=== PATIENT | female | born 1950 | race Two or more races ===

== ENCOUNTER 2021-04-10 02:22 | Inpatient (IN) | payer BC, OTHER ==
[2021-04-10] VITALS (23 sets, daily range): BP systolic 101–134; BP diastolic 60–75
[~2021-04-10] VITALS: Ht 167.6 cm; Wt 66.2 kg
[2021-04-10] MEDS ORDERED: DILTIAZEM HCL 25 MG IV ONE ×4 (02:51→04:40)
[2021-04-10] MEDS ORDERED: VANCOMYCIN 1 GM VIAL ONE (02:57)
[2021-04-10] MEDS ORDERED: IV NS 0.9% 1,000 ML BAG IV ONE (03:00)
[2021-04-10] MEDS ORDERED: DILTIAZEM HCL 50 MG IV IV ONE ×2 (03:00→04:00)
[2021-04-10] MEDS ORDERED: CEFEPIME 1 GM in IV D5W 50 ML IV ONE (03:00)
[2021-04-10] MEDS: VANCOMYCIN 1 GM in IV D5W 250 ML IV ONE ×2 (03:02→03:55)
[2021-04-10] MEDS ORDERED: FENTANYL PF 100MCG/2ML AMPUL ONE (03:08)
[2021-04-10] MEDS ORDERED: MIDAZOLAM 50 MG/10 ML VIAL ONE (03:11)
[2021-04-10] MEDS ORDERED: MIDAZOLAM HCL 5 MG/5ML VIAL IV ONE (03:30)
[2021-04-10] MEDS ORDERED: IV NS 0.9% 1,000 ML BAG IV STA (03:48)
[2021-04-10 03:54] LABS: BASOPHILS % (AUTO) 0.1 % (0.0-2.0); EOSINOPHILS % (AUTO) 0.5 % (0.0-6.0); LYMPHOCYTES # (AUTO) 0.6 K/uL (0.8-4.8); LYMPHOCYTES % (AUTO) 6.5 % (20.0-44.0); MEAN CORPUSCULAR HGB CONC 33 g/dl (31.0-36.0); MEAN CORPUSCULAR VOLUME 91 fL (80-96); MONOCYTES # (AUTO) 0.5 K/uL (0.1-1.30); MONOCYTES % (AUTO) 5.2 % (2.0-12.0); NEUTROPHILS # (AUTO) 8.2 K/uL (1.8-8.9); NEUTROPHILS % (AUTO) 87.7 % (43.0-81.0); PLATELET COUNT (AUTO) 243 K/uL (150-450); RED BLOOD CELL COUNT(AUTO) 2.21 MIL/uL (4.5-6.0); WHITE BLOOD COUNT (AUTO) 9.4 K/uL (4.3-11.0)
[2021-04-10] MEDS ORDERED: DILTIAZEM HCL IV 125 MG in IV NS 0.9% 100 ML IV PRN ×2 (04:00→05:00)
[2021-04-10] MEDS ORDERED: CEFEPIME 1 GM VIAL ONE (04:03)
[2021-04-10 04:18] LABS: BILIRUBIN,URINE SMALL (NEGATIVE); COLOR,URINE AMBER (YELLOW); LEUKOCYTE ESTERASE ,URINE TRACE (NEGATIVE); NITRITE, URINE NEGATIVE (NEGATIVE); PROTEIN,URINE 100 mg/dl (NEGATIVE); UGLUCOSE NEGATIVE (NEGATIVE); UROBILINOGEN,URINE 0.2 EU/dL (0.2)
[2021-04-10 04:23] LABS: BACTERIA,URINE Few /HPF (None Seen); RBC,URINE 81-100 /HPF (0-2)
[2021-04-10 04:24] LABS: SQUAMOUS EPITHELIAL CELL,UR Few /HPF (None Seen); YEAST,URINE Few /HPF (None Seen)
[2021-04-10 04:29] LABS: ALANINE AMINOTRANSFERASE 26 U/L (12-78); ALBUMIN 2.1 g/dL (3.4-5.0); ALKALINE PHOSPHATASE 82 U/L (46-116); ASPARTATE AMINOTRANSFERASE 13 U/L (15-37); BILIRUBIN,DIRECT 0.2 mg/dL (0.0-0.2); BILIRUBIN,TOTAL 0.7 mg/dL (0.2-1.0); CALCIUM, SERUM 8.3 mg/dL (8.5-10.1); CARBON DIOXIDE 25 mmol/L (21-32); CHLORIDE 102 mmol/L (98-107); CREATININE 0.9 mg/dL (0.6-1.3); GLUCOSE 121 mg/dL (74-106); HEMATOCRIT 20 % (39-51); HEMOGLOBIN 6.5 g/dL (13.5-17.5); POTASSIUM 3.7 mmol/L (3.5-5.1); SODIUM SERUM 137 mmol/L (136-145); UREA NITROGEN, BLOOD 33 mg/dL (7-18)
[2021-04-10] MEDS ORDERED: DILTIAZEM HCL CD 120 MG ONE (04:34)
[2021-04-10] MEDS ORDERED: NOREPINEPHRINE 4 MG/4 ML AMPUL IV ONE (04:56)
[2021-04-10] MEDS ORDERED: ACETAMINOPHEN 325 MG TABLET PO PRN (05:00)
[2021-04-10] MEDS ORDERED: MAGNESIUM HYDROXIDE 30 ML UDC PO PRN (05:00)
[2021-04-10] MEDS ORDERED: NOREPINEPHRINE 8 MG in IV NS 0.9% 242 ML IV PRN ×2 (05:00→17:00)
[2021-04-10] MEDS ORDERED: ONDANSETRON HCL/PF 4 MG/2 ML VIAL IVP PRN (05:00)
[2021-04-10 05:44] LABS: LYMPHOCYTES % (MANUAL) 6 % (16-48); MONOCYTES % (MANUAL) 7 % (0-11.0); NEUTROPHILS % (MANUAL) 87 (42-76)
[2021-04-10] MEDS ORDERED: PANTOPRAZOLE 40 MG VIAL IV SCH (09:00)
[2021-04-10] MEDS: CEFEPIME 2 GM in IV D5W 100 ML IV SCH ×2 (09:19→21:14)
[2021-04-10] MEDS ORDERED: PANTOPRAZOLE 40 MG VIAL ONE (09:20)
[2021-04-10] MEDS ORDERED: SENN-175 GT (10:31)
[2021-04-10] MEDS ORDERED: CRAN400C GT (10:31)
[2021-04-10] MEDS ORDERED: ASCO500C17 GT (10:31)
[2021-04-10] MEDS ORDERED: CHOL200013 GT (10:31)
[2021-04-10] MEDS ORDERED: ZINC220T4 PO (10:31)
[2021-04-10] MEDS ORDERED: NUTR1PAC14 GT (10:31)
[2021-04-10] MEDS ORDERED: HEPA100D33 SUBCUT (10:31)
[2021-04-10] MEDS ORDERED: ACET325T53 GT (10:31)
[2021-04-10] MEDS ORDERED: METO25TA6 GT (10:31)
[2021-04-10] MEDS ORDERED: CRAN3875 GT (10:31)
[2021-04-10] MEDS ORDERED: FAMO20TA8 GT (10:31)
[2021-04-10] MEDS ORDERED: MULT-447 PO (10:31)
[2021-04-10] MEDS ORDERED: IPRA0.2S9 IH (10:31)
[2021-04-10] MEDS ORDERED: LEVO25TA7 GT (10:31)
[2021-04-10] MEDS ORDERED: INSU100V42 SUBCUT (10:31)
[2021-04-10] MEDS ORDERED: AMIN30LI2 GT (10:31)
[2021-04-10] MEDS ORDERED: ALBU2.5V13 IH (10:31)
[2021-04-10] MEDS ORDERED: DOCU-141 GT (10:31)
[2021-04-10] MEDS ORDERED: CHLO473M3 MM (10:31)
[2021-04-10] MEDS ORDERED: LACT-96 GT (10:31)
[2021-04-10] MEDS ORDERED: AMIODARONE 150 MG/3 ML VIAL IV ONE (10:53)
[2021-04-10] MEDS ORDERED: PHENYLEPHRINE HCL IN 0.9% NACL 50 MG in PREMIX 1 EA IV PRN ×2 (11:00)
[2021-04-10] MEDS ORDERED: AMIODARONE 150 MG in IV D5W 100 ML IV ONE (11:00)
[2021-04-10] MEDS: IV NS 0.9% 1,000 ML IV PRN ×2 (13:19→19:36)
[2021-04-10] MEDS: HYDROCORTISONE SOD SUCCINATE 100 MG/2 ML VIAL IV SCH ×2 (13:23→21:14)
[2021-04-10] MEDS: DIGOXIN INJ 0.5 MG/2 ML AMPUL IV SCH ×3 (13:32→23:37)
[2021-04-10 14:04] LABS: ABG BASE EXCESS 0.6 mmol/L; ABG OXYGEN SATURATION 95.5 % (92.0-98.5); ABG PH 7.533 (7.350-7.450); AaDO2 149.2 mmHg; COHb 0.2 % (0.5-1.5); MetHb 0.2 % (0.0-1.5); O2Hb 95.1 % (94.0-97.0); PEEP,BG 0 cm H2O; SITE, ABG Other; VT, ABG 500 mL
[2021-04-10] MEDS: VANCOMYCIN 0.75 GM in IV D5W 250 ML IV SCH (14:42)
[2021-04-10 15:06] LABS: IRON, SERUM 9 ug/dl (50-175); TOTAL IRON BINDING CAPACITY 176 ug/dl (250-450)
[2021-04-10 16:45] LABS: FERRITIN 543 ng/mL (8-388)
[2021-04-10] MEDS: ACETAMINOPHEN 650 MG/20.3 ML UDC NG PRN (16:56)
[2021-04-10] MEDS: LORAZEPAM INJ 2 MG/ML VIAL IV PRN (16:56)
[2021-04-10] MEDS ORDERED: DEXTROSE 50%-WATER 50 ML DISP.SYRIN IV PRN (17:30)
[2021-04-10] MEDS ORDERED: VANCOMYCIN HCL 0.75 GM in IV D5W 250 ML IV SCH (18:00)
[2021-04-10] MEDS: BLOOD SUGAR DIAGNOSTIC 1 EACH STRIP IN SCH ×2 (18:35→23:52)
[2021-04-10 20:11] LABS: HEMOGLOBIN 6.3 g/dL (11.5-14.8)
[2021-04-10] MEDS: Z GUARD REMEDY 4 OZ OINT TP SCH (21:32)
[2021-04-10] MEDS: INSULIN REGULAR, HUMAN 100 UNIT/ML 3 ML VIAL SQ PRN (23:52)
[2021-04-11] VITALS (34 sets, daily range): BP systolic 102–148; BP diastolic 41–94
[2021-04-11] MEDS: IV NS 0.9% 1,000 ML IV PRN ×3 (00:03→13:03)
[2021-04-11] MEDS: VANCOMYCIN 0.75 GM in IV D5W 250 ML IV SCH ×2 (02:24→15:00)
[2021-04-11] MEDS: LORAZEPAM INJ 2 MG/ML VIAL IV PRN ×3 (02:57→23:38)
[2021-04-11] MEDS: HYDROCORTISONE SOD SUCCINATE 100 MG/2 ML VIAL IV SCH ×3 (05:04→21:39)
[2021-04-11 06:01] LABS: BASOPHILS % (AUTO) 0.3 % (0.0-2.0); EOSINOPHILS % (AUTO) 0.1 % (0.0-6.0); LYMPHOCYTES # (AUTO) 0.3 K/uL (0.8-4.8); MEAN CORPUSCULAR HGB CONC 33 g/dl (31.0-36.0); MEAN CORPUSCULAR VOLUME 91 fL (82-100); MONOCYTES # (AUTO) 0.2 K/uL (0.1-1.30); MONOCYTES % (AUTO) 2.7 % (2.0-12.0); NEUTROPHILS # (AUTO) 6.5 K/uL (1.8-8.9); NEUTROPHILS % (AUTO) 92.9 % (43.0-81.0); PLATELET COUNT (AUTO) 244 K/uL (150-450); RED BLOOD CELL COUNT(AUTO) 2.05 MIL/uL (4.0-5.2)
[2021-04-11 06:11] LABS: CHOLESTEROL 106 mg/dL (<200); HDL CHOLESTEROL 26 mg/dL (40-60); LDL 61 mg/dL (0-99); TRIGLYCERIDES 74 mg/dL (30-150)
[2021-04-11] MEDS: BLOOD SUGAR DIAGNOSTIC 1 EACH STRIP IN SCH ×3 (06:22→17:47)
[2021-04-11 06:24] LABS: CALCIUM, SERUM 7.9 mg/dL (8.5-10.1); CARBON DIOXIDE 25 mmol/L (21-32); CHLORIDE 104 mmol/L (98-107); CREATININE 0.6 mg/dL (0.6-1.3); GLUCOSE 152 mg/dL (74-106); MAGNESIUM 2.2 mg/dL (1.8-2.4); PHOSPHORUS 2.8 mg/dL (2.5-4.9); POTASSIUM 3.7 mmol/L (3.5-5.1); SODIUM SERUM 137 mmol/L (136-145); UREA NITROGEN, BLOOD 22 mg/dL (7-18)
[2021-04-11 06:30] LABS: HEMATOCRIT 19 % (33-45); HEMOGLOBIN 6.1 g/dL (11.5-14.8)
[2021-04-11 06:31] LABS: HEMOGLOBIN 6.1 g/dL (11.5-14.8)
[2021-04-11] MEDS: INSULIN REGULAR, HUMAN 100 UNIT/ML 3 ML VIAL SQ PRN ×2 (06:42→13:19)
[2021-04-11 07:55] LABS: ABG BASE EXCESS -0.8 mmol/L; ABG OXYGEN SATURATION 97.4 % (92.0-98.5); ABG PCO2 28.5 mmHg (35.0-45.0); ABG PH 7.506 (7.350-7.450); ABG PO2 94.3 mmHg (75.0-100.0); AaDO2 122.1 mmHg; COHb 0.3 % (0.5-1.5); MetHb 0.2 % (0.0-1.5); O2Hb 96.9 % (94.0-97.0); SITE, ABG Right Radial
[2021-04-11] MEDS ORDERED: IV NS 0.9% 1,000 ML IV ONE (08:00)
[2021-04-11] MEDS ORDERED: FERROUS SULFATE (325 MG) 325 MG/TAB TABLET PO SCH (09:00)
[2021-04-11] MEDS: CEFEPIME 2 GM in IV D5W 100 ML IV SCH ×2 (10:48→21:52)
[2021-04-11] MEDS: PANTOPRAZOLE 40 MG VIAL IV SCH ×2 (10:48→17:46)
[2021-04-11] MEDS: Z GUARD REMEDY 4 OZ OINT TP SCH ×2 (10:49→21:58)
[2021-04-11 11:33] LABS: HEMOGLOBIN 6.8 g/dL (11.5-14.8)
[2021-04-11 13:26] LABS: BAND % (MANUAL) 1 % (0.0-5.0); LYMPHOCYTES % (MANUAL) 4 % (16-48); MONOCYTES % (MANUAL) 3 % (0-11.0); NEUTROPHILS % (MANUAL) 92 (42-76)
[2021-04-11] MEDS: SOD FERRIC GLUC 125 MG in IV NS 0.9% 100 ML IV SCH (14:53)
[2021-04-11] MEDS: VANCOMYCIN 1 GM in IV D5W 250ml IV SCH (17:47)
[2021-04-11 21:34] LABS: HEMOGLOBIN 6.9 g/dL (11.5-14.8)
[2021-04-12] VITALS (11 sets, daily range): BP systolic 115–159; BP diastolic 59–100
[2021-04-12] MEDS: BLOOD SUGAR DIAGNOSTIC 1 EACH STRIP IN SCH ×4 (00:44→17:12)
[2021-04-12] MEDS: IV NS 0.9% 1,000 ML IV PRN ×2 (03:11→18:21)
[2021-04-12 03:23] LABS: HEMOGLOBIN 7.4 g/dL (11.5-14.8)
[2021-04-12] MEDS: LORAZEPAM INJ 2 MG/ML VIAL IV PRN (04:51)
[2021-04-12] MEDS: HYDROCORTISONE SOD SUCCINATE 100 MG/2 ML VIAL IV SCH ×3 (05:36→21:05)
[2021-04-12] MEDS: VANCOMYCIN 1 GM in IV D5W 250ml IV SCH ×2 (05:42→17:18)
[2021-04-12] MEDS ORDERED: DILTIAZEM HCL 25 MG IV ONE (06:00)
[2021-04-12] MEDS ORDERED: DILTIAZEM HCL 50 MG IV IVP ONE (06:00)
[2021-04-12] MEDS ORDERED: DILTIAZEM HCL 25 MG IV IVP ONE (06:30)
[2021-04-12] MEDS ORDERED: DILTIAZEM HCL 25 MG IV INJ ONE (06:30)
[2021-04-12 06:43] LABS: CALCIUM, SERUM 8.5 mg/dL (8.5-10.1); CREATININE 0.6 mg/dL (0.6-1.3); POTASSIUM 3.3 mmol/L (3.5-5.1)
[2021-04-12] MEDS: PANTOPRAZOLE 40 MG VIAL IV SCH (08:48)
[2021-04-12] MEDS: Z GUARD REMEDY 4 OZ OINT TP SCH ×2 (08:49→21:05)
[2021-04-12] MEDS: CEFEPIME 2 GM in IV D5W 100 ML IV SCH (09:12)
[2021-04-12] MEDS: AMIODARONE HCL 200 MG TABLET PO SCH ×3 (09:30→16:47)
[2021-04-12 11:11] LABS: HEMOGLOBIN 8.6 g/dL (11.5-14.8)
[2021-04-12 11:22] LABS: ABG BASE EXCESS -3.9 mmol/L; ABG OXYGEN SATURATION 89.5 % (92.0-98.5); ABG PCO2 30.6 mmHg (35.0-45.0); ABG PH 7.427 (7.350-7.450); ABG PO2 56.8 mmHg (75.0-100.0); AaDO2 157.2 mmHg; COHb 0.3 % (0.5-1.5); MetHb 0.4 % (0.0-1.5); O2Hb 88.9 % (94.0-97.0); SITE, ABG Left Radial; VENT MODE, BG AC 16 400 35% +0
[2021-04-12] MEDS ORDERED: POTASSIUM CHLORIDE 20 MEQ TAB.PRT.SR PO SCH (13:30)
[2021-04-12] MEDS: SOD FERRIC GLUC 125 MG in IV NS 0.9% 100 ML IV SCH (15:21)
[2021-04-12] MEDS: PANTOPRAZOLE 40 MG TABLET.DR PO SCH (16:46)
[2021-04-12 18:29] LABS: HEMOGLOBIN 8.2 g/dL (11.5-14.8)
[2021-04-12] MEDS ORDERED: JEVITY 1.2 CAL 1,000 ML BOTTLE GT PRN (19:00)
[2021-04-12] MEDS: JEVITY 1.2 CAL 1,000 ML BOTTLE GT SCH (23:34)
[2021-04-13] VITALS: BP 156/85
[2021-04-13] MEDS: BLOOD SUGAR DIAGNOSTIC 1 EACH STRIP IN SCH ×4 (00:01→17:26)
[2021-04-13 03:00] LABS: HEMOGLOBIN 8.9 g/dL (11.5-14.8)
[2021-04-13 04:00] VITALS: BP 135/89
[2021-04-13] MEDS: HYDROCORTISONE SOD SUCCINATE 100 MG/2 ML VIAL IV SCH ×4 (05:12→16:04)
[2021-04-13] MEDS: VANCOMYCIN 1 GM in IV D5W 250ml IV SCH ×2 (05:13→17:21)
[2021-04-13] MEDS: INSULIN REGULAR, HUMAN 100 UNIT/ML 3 ML VIAL SQ PRN ×2 (06:08→11:33)
[2021-04-13 07:55] LABS: CALCIUM, SERUM 8.6 mg/dL (8.5-10.1); CREATININE 0.7 mg/dL (0.6-1.3)
[2021-04-13 08:30] LABS: POTASSIUM 2.7 mmol/L (3.5-5.1)
[2021-04-13 08:44] LABS: BASOPHILS % (AUTO) 0.2 % (0.0-2.0); EOSINOPHILS % (AUTO) 0.1 % (0.0-6.0); HEMATOCRIT 25 % (33-45); HEMOGLOBIN 8.3 g/dL (11.5-14.8); LYMPHOCYTES # (AUTO) 0.7 K/uL (0.8-4.8); LYMPHOCYTES % (AUTO) 11.6 % (20.0-44.0); MEAN CORPUSCULAR HGB CONC 33 g/dl (31.0-36.0); MEAN CORPUSCULAR VOLUME 89 fL (82-100); MONOCYTES # (AUTO) 0.5 K/uL (0.1-1.30); MONOCYTES % (AUTO) 7.8 % (2.0-12.0); NEUTROPHILS # (AUTO) 4.8 K/uL (1.8-8.9); NEUTROPHILS % (AUTO) 80.3 % (43.0-81.0); PLATELET COUNT (AUTO) 350 K/uL (150-450); RED BLOOD CELL COUNT(AUTO) 2.83 MIL/uL (4.0-5.2)
[2021-04-13 08:53] VITALS: BP 134/79
[2021-04-13] MEDS: AMIODARONE HCL 200 MG TABLET PO SCH ×3 (09:27→16:06)
[2021-04-13] MEDS: PANTOPRAZOLE 40 MG TABLET.DR PO SCH ×2 (09:27→16:04)
[2021-04-13] MEDS: Z GUARD REMEDY 4 OZ OINT TP SCH ×2 (09:28→21:15)
[2021-04-13 09:42] LABS: ALBUMIN 2.2 g/dL (3.4-5.0); BILIRUBIN,TOTAL 0.4 mg/dL (0.2-1.0); CALCIUM, SERUM 8.2 mg/dL (8.5-10.1); CREATININE 0.7 mg/dL (0.6-1.3)
[2021-04-13 10:01] LABS: POTASSIUM 2.6 mmol/L (3.5-5.1)
[2021-04-13] MEDS ORDERED: POTASSIUM CHLORIDE 20 MEQ TAB.PRT.SR PO SCH (11:00)
[2021-04-13 11:06] LABS: HEMOGLOBIN 7.6 g/dL (11.5-14.8)
[2021-04-13 12:07] VITALS: BP 158/95
[2021-04-13] MEDS: SOD FERRIC GLUC 125 MG in IV NS 0.9% 100 ML IV SCH (13:27)
[2021-04-13] MEDS: IPRATROPIUM NEB FS 0.5 MG/2.5 ML AMPUL.NEB IH SCH ×2 (13:50→20:21)
[2021-04-13] MEDS: FAMOTIDINE (20 MG) 20 MG TABLET GT SCH (16:04)
[2021-04-13] MEDS: DOCUSATE SODIUM LIQ 100 MG/10 ML UDC GT SCH (16:04)
[2021-04-13] MEDS: METOPROLOL TARTRATE 25 MG TABLET GT SCH (16:06)
[2021-04-13] MEDS: JEVITY 1.2 CAL 1,000 ML BOTTLE GT SCH (16:24)
[2021-04-13 16:25] VITALS: BP 148/79
[2021-04-13] MEDS ORDERED: POTASSIUM CHLORIDE 20 MEQ POWDER PACKET PO SCH (17:00)
[2021-04-13 19:24] LABS: BAND % (MANUAL) 6 % (0.0-5.0); LYMPHOCYTES % (MANUAL) 12 % (16-48); MONOCYTES % (MANUAL) 6 % (0-11.0); NEUTROPHILS % (MANUAL) 76 (42-76)
[2021-04-13 20:00] VITALS: BP 139/85
[2021-04-13] MEDS: CHLORHEXIDINE GLUCONATE 15 ML UDC MM SCH (21:15)
[2021-04-13] MEDS: SENNOSIDES 8.6 MG TABLET GT SCH (23:23)
[2021-04-14] VITALS: BP 130/98
[2021-04-14] MEDS: IV NS 0.9% 1,000 ML IV PRN ×2 (00:32→00:36)
[2021-04-14] MEDS: INSULIN REGULAR, HUMAN 100 UNIT/ML 3 ML VIAL SQ PRN ×4 (00:54→17:21)
[2021-04-14] MEDS: BLOOD SUGAR DIAGNOSTIC 1 EACH STRIP IN SCH ×4 (00:57→17:17)
[2021-04-14] MEDS: IPRATROPIUM NEB FS 0.5 MG/2.5 ML AMPUL.NEB IH SCH ×4 (01:15→20:19)
[2021-04-14 04:00] VITALS: BP 136/74
[2021-04-14] MEDS: VANCOMYCIN 1 GM in IV D5W 250ml IV SCH ×2 (05:24→17:34)
[2021-04-14 07:19] LABS: BASOPHILS % (AUTO) 0.2 % (0.0-2.0); EOSINOPHILS % (AUTO) 1.7 % (0.0-6.0); HEMATOCRIT 27 % (33-45); HEMOGLOBIN 8.7 g/dL (11.5-14.8); LYMPHOCYTES # (AUTO) 1.2 K/uL (0.8-4.8); MEAN CORPUSCULAR HGB CONC 33 g/dl (31.0-36.0); MEAN CORPUSCULAR VOLUME 90 fL (82-100); MONOCYTES # (AUTO) 0.7 K/uL (0.1-1.30); MONOCYTES % (AUTO) 10.2 % (2.0-12.0); NEUTROPHILS # (AUTO) 5.2 K/uL (1.8-8.9); NEUTROPHILS % (AUTO) 70.9 % (43.0-81.0); PLATELET COUNT (AUTO) 404 K/uL (150-450); RED BLOOD CELL COUNT(AUTO) 2.97 MIL/uL (4.0-5.2); WHITE BLOOD COUNT (AUTO) 7.3 K/uL (4.3-11.0)
[2021-04-14 07:33] LABS: ALBUMIN 2.3 g/dL (3.4-5.0); BILIRUBIN,TOTAL 0.5 mg/dL (0.2-1.0); CREATININE 0.6 mg/dL (0.6-1.3); TOTAL PROTEIN, SERUM 6.2 g/dL (6.4-8.2)
[2021-04-14 07:41] LABS: POTASSIUM 2.1 mmol/L (3.5-5.1)
[2021-04-14] MEDS ORDERED: POTASSIUM CHLORIDE 20 MEQ POWDER PACKET NG SCH (09:30)
[2021-04-14] MEDS: CHOLECALCIFEROL 1,000 UNIT TABLET (VIT D3) GT SCH (09:56)
[2021-04-14] MEDS: HYDROCORTISONE SOD SUCCINATE 100 MG/2 ML VIAL IV SCH ×2 (09:58→13:30)
[2021-04-14] MEDS: ASCORBIC ACID 500 MG TABLET GT SCH (09:58)
[2021-04-14] MEDS: FAMOTIDINE (20 MG) 20 MG TABLET GT SCH ×2 (09:58→17:17)
[2021-04-14] MEDS: CHLORHEXIDINE GLUCONATE 15 ML UDC MM SCH ×2 (09:58→21:14)
[2021-04-14] MEDS: DOCUSATE SODIUM LIQ 100 MG/10 ML UDC GT SCH ×2 (09:58→17:11)
[2021-04-14] MEDS: PANTOPRAZOLE 40 MG TABLET.DR PO SCH ×2 (09:58→17:16)
[2021-04-14] MEDS: Z GUARD REMEDY 4 OZ OINT TP SCH ×2 (10:00→21:14)
[2021-04-14] MEDS: LEVOTHYROXINE SODIUM 75 MCG TABLET GT SCH (10:01)
[2021-04-14] MEDS: METOPROLOL TARTRATE 25 MG TABLET GT SCH ×2 (10:19→17:17)
[2021-04-14] MEDS: AMIODARONE HCL 200 MG TABLET PO SCH ×3 (10:20→17:16)
[2021-04-14] MEDS: POTASSIUM CHLORIDE 20 MEQ POWDER PACKET NG SCH ×3 (10:56→17:11)
[2021-04-14] MEDS: SOD FERRIC GLUC 125 MG in IV NS 0.9% 100 ML IV SCH (15:12)
[2021-04-14] MEDS: JEVITY 1.2 CAL 1,000 ML BOTTLE GT SCH (15:13)
[2021-04-14] MEDS: SENNOSIDES 8.6 MG TABLET GT SCH (22:37)
[2021-04-15] VITALS: BP 125/63
[2021-04-15] MEDS: BLOOD SUGAR DIAGNOSTIC 1 EACH STRIP IN SCH ×4 (00:07→17:13)
[2021-04-15] MEDS: INSULIN REGULAR, HUMAN 100 UNIT/ML 3 ML VIAL SQ PRN ×4 (00:11→17:17)
[2021-04-15] MEDS: IPRATROPIUM NEB FS 0.5 MG/2.5 ML AMPUL.NEB IH SCH ×4 (01:49→19:12)
[2021-04-15 04:00] VITALS: BP 154/87
[2021-04-15] MEDS: VANCOMYCIN 1 GM in IV D5W 250ml IV SCH ×2 (05:00→17:23)
[2021-04-15 07:32] LABS: BASOPHILS % (AUTO) 0.1 % (0.0-2.0); EOSINOPHILS % (AUTO) 1.6 % (0.0-6.0); HEMATOCRIT 27 % (33-45); HEMOGLOBIN 8.7 g/dL (11.5-14.8); LYMPHOCYTES # (AUTO) 1.7 K/uL (0.8-4.8); LYMPHOCYTES % (AUTO) 16.3 % (20.0-44.0); MEAN CORPUSCULAR HGB CONC 32 g/dl (31.0-36.0); MEAN CORPUSCULAR VOLUME 90 fL (82-100); MONOCYTES # (AUTO) 0.7 K/uL (0.1-1.30); MONOCYTES % (AUTO) 6.4 % (2.0-12.0); NEUTROPHILS % (AUTO) 75.6 % (43.0-81.0); PLATELET COUNT (AUTO) 404 K/uL (150-450); RED BLOOD CELL COUNT(AUTO) 2.99 MIL/uL (4.0-5.2); WHITE BLOOD COUNT (AUTO) 10.5 K/uL (4.3-11.0)
[2021-04-15 08:31] VITALS: BP 134/75
[2021-04-15] MEDS: DOCUSATE SODIUM LIQ 100 MG/10 ML UDC GT SCH ×2 (08:47→17:21)
[2021-04-15] MEDS: POTASSIUM CHLORIDE 20 MEQ POWDER PACKET NG SCH ×3 (08:47→17:21)
[2021-04-15] MEDS: ASCORBIC ACID 500 MG TABLET GT SCH (08:47)
[2021-04-15] MEDS: CHLORHEXIDINE GLUCONATE 15 ML UDC MM SCH ×2 (08:47→21:17)
[2021-04-15] MEDS: CHOLECALCIFEROL 1,000 UNIT TABLET (VIT D3) GT SCH (08:47)
[2021-04-15] MEDS: AMIODARONE HCL 200 MG TABLET PO SCH ×3 (08:48→18:01)
[2021-04-15] MEDS: PANTOPRAZOLE 40 MG TABLET.DR PO SCH ×2 (08:49→17:21)
[2021-04-15] MEDS: LEVOTHYROXINE SODIUM 75 MCG TABLET GT SCH (08:50)
[2021-04-15] MEDS: HYDROCORTISONE SOD SUCCINATE 100 MG/2 ML VIAL IV SCH (08:50)
[2021-04-15] MEDS: METOPROLOL TARTRATE 25 MG TABLET GT SCH ×2 (08:50→17:00)
[2021-04-15] MEDS: FAMOTIDINE (20 MG) 20 MG TABLET GT SCH ×2 (08:50→17:21)
[2021-04-15] MEDS: Z GUARD REMEDY 4 OZ OINT TP SCH ×2 (08:51→21:18)
[2021-04-15 09:38] LABS: CALCIUM, SERUM 8.3 mg/dL (8.5-10.1); CREATININE 0.6 mg/dL (0.6-1.3)
[2021-04-15 09:43] LABS: ALBUMIN 2.4 g/dL (3.4-5.0); BILIRUBIN,TOTAL 0.6 mg/dL (0.2-1.0)
[2021-04-15 12:13] VITALS: BP 165/85
[2021-04-15] MEDS: SOD FERRIC GLUC 125 MG in IV NS 0.9% 100 ML IV SCH (15:49)
[2021-04-15] MEDS: JEVITY 1.2 CAL 1,000 ML BOTTLE GT SCH (15:50)
[2021-04-15 16:44] VITALS: BP 165/92
[2021-04-15 20:00] VITALS: BP 146/53
[2021-04-15] MEDS: SENNOSIDES 8.6 MG TABLET GT SCH (21:17)
[2021-04-16] VITALS: BP 141/56
[2021-04-16] MEDS: BLOOD SUGAR DIAGNOSTIC 1 EACH STRIP IN SCH ×5 (00:22→23:56)
[2021-04-16] MEDS: INSULIN REGULAR, HUMAN 100 UNIT/ML 3 ML VIAL SQ PRN ×3 (00:22→18:41)
[2021-04-16] MEDS: IPRATROPIUM NEB FS 0.5 MG/2.5 ML AMPUL.NEB IH SCH ×4 (00:56→20:04)
[2021-04-16 04:00] VITALS: BP 144/64
[2021-04-16] MEDS: VANCOMYCIN 1 GM in IV D5W 250ml IV SCH ×2 (04:17→18:02)
[2021-04-16 07:34] LABS: BASOPHILS % (AUTO) 0.2 % (0.0-2.0); EOSINOPHILS % (AUTO) 2.5 % (0.0-6.0); HEMATOCRIT 30 % (33-45); HEMOGLOBIN 9.6 g/dL (11.5-14.8); LYMPHOCYTES # (AUTO) 1.3 K/uL (0.8-4.8); LYMPHOCYTES % (AUTO) 10.7 % (20.0-44.0); MEAN CORPUSCULAR HGB CONC 32 g/dl (31.0-36.0); MEAN CORPUSCULAR VOLUME 89 fL (82-100); MONOCYTES # (AUTO) 0.6 K/uL (0.1-1.30); MONOCYTES % (AUTO) 5.2 % (2.0-12.0); NEUTROPHILS # (AUTO) 9.9 K/uL (1.8-8.9); NEUTROPHILS % (AUTO) 81.4 % (43.0-81.0); PLATELET COUNT (AUTO) 407 K/uL (150-450); RED BLOOD CELL COUNT(AUTO) 3.34 MIL/uL (4.0-5.2); WHITE BLOOD COUNT (AUTO) 12.2 K/uL (4.3-11.0)
[2021-04-16 07:38] LABS: ALBUMIN 2.6 g/dL (3.4-5.0); BILIRUBIN,TOTAL 0.8 mg/dL (0.2-1.0); CALCIUM, SERUM 8.3 mg/dL (8.5-10.1); CREATININE 0.7 mg/dL (0.6-1.3); POTASSIUM 3.6 mmol/L (3.5-5.1); TOTAL PROTEIN, SERUM 6.5 g/dL (6.4-8.2)
[2021-04-16] MEDS: DOCUSATE SODIUM LIQ 100 MG/10 ML UDC GT SCH ×2 (08:40→17:57)
[2021-04-16] MEDS: CHLORHEXIDINE GLUCONATE 15 ML UDC MM SCH ×2 (08:40→22:05)
[2021-04-16] MEDS: FAMOTIDINE (20 MG) 20 MG TABLET GT SCH ×2 (08:40→17:58)
[2021-04-16] MEDS: LEVOTHYROXINE SODIUM 75 MCG TABLET GT SCH (08:40)
[2021-04-16] MEDS: METOPROLOL TARTRATE 25 MG TABLET GT SCH ×2 (08:40→17:59)
[2021-04-16] MEDS: ASCORBIC ACID 500 MG TABLET GT SCH (08:41)
[2021-04-16] MEDS: HYDROCORTISONE SOD SUCCINATE 100 MG/2 ML VIAL IV SCH (08:41)
[2021-04-16] MEDS: CHOLECALCIFEROL 1,000 UNIT TABLET (VIT D3) GT SCH (08:42)
[2021-04-16] MEDS: POTASSIUM CHLORIDE 20 MEQ POWDER PACKET NG SCH ×3 (08:42→17:58)
[2021-04-16] MEDS: AMIODARONE HCL 200 MG TABLET PO SCH ×3 (08:42→17:58)
[2021-04-16] MEDS: PANTOPRAZOLE 40 MG TABLET.DR PO SCH ×2 (08:42→17:58)
[2021-04-16] MEDS: Z GUARD REMEDY 4 OZ OINT TP SCH ×2 (08:43→22:06)
[2021-04-16 08:45] VITALS: BP 155/90
[2021-04-16 11:42] LABS: BAND % (MANUAL) 2 % (0.0-5.0); EOSINOPHILS % (MANUAL) 2 % (0-4); LYMPHOCYTES % (MANUAL) 16 % (16-48); METAMYELOCYTES % 2 % (0-0); MONOCYTES % (MANUAL) 4 % (0-11.0); MYELOCYTES % 2 % (0-0); NEUTROPHILS % (MANUAL) 72 (42-76)
[2021-04-16] MEDS ORDERED: IOHEXOL-300 100 ML VIAL IV ONE (14:11)
[2021-04-16] MEDS ORDERED: IV NS 0.9% 250 ML IV ONE (14:11)
[2021-04-16] MEDS ORDERED: CT SWABBABLE VALVE TRANS SET 1 EA INFUS.SET MC ONE (14:11)
[2021-04-16] MEDS: PROSOURCE / PROSTAT (PYXIS) 30 ML UDC GT SCH (15:00)
[2021-04-16 16:11] VITALS: BP 143/56
[2021-04-16 21:25] VITALS: BP 148/74
[2021-04-16] MEDS: SENNOSIDES 8.6 MG TABLET GT SCH (22:05)
[2021-04-17 00:33] VITALS: BP 147/78
[2021-04-17] MEDS: IPRATROPIUM NEB FS 0.5 MG/2.5 ML AMPUL.NEB IH SCH ×4 (02:02→21:01)
[2021-04-17 04:32] VITALS: BP 141/77
[2021-04-17 04:43] LABS: BASOPHILS % (AUTO) 0.2 % (0.0-2.0); EOSINOPHILS % (AUTO) 3.5 % (0.0-6.0); HEMATOCRIT 30 % (33-45); HEMOGLOBIN 9.6 g/dL (11.5-14.8); LYMPHOCYTES # (AUTO) 1.2 K/uL (0.8-4.8); LYMPHOCYTES % (AUTO) 12.3 % (20.0-44.0); MEAN CORPUSCULAR HGB CONC 32 g/dl (31.0-36.0); MEAN CORPUSCULAR VOLUME 90 fL (82-100); MONOCYTES # (AUTO) 0.6 K/uL (0.1-1.30); MONOCYTES % (AUTO) 5.7 % (2.0-12.0); NEUTROPHILS # (AUTO) 7.7 K/uL (1.8-8.9); NEUTROPHILS % (AUTO) 78.3 % (43.0-81.0); PLATELET COUNT (AUTO) 420 K/uL (150-450); RED BLOOD CELL COUNT(AUTO) 3.32 MIL/uL (4.0-5.2); WHITE BLOOD COUNT (AUTO) 9.9 K/uL (4.3-11.0)
[2021-04-17 04:52] LABS: CALCIUM, SERUM 8.7 mg/dL (8.5-10.1); CARBON DIOXIDE 31 mmol/L (21-32); CHLORIDE 95 mmol/L (98-107); CREATININE 0.7 mg/dL (0.6-1.3); GLUCOSE 99 mg/dL (74-106); POTASSIUM 3.9 mmol/L (3.5-5.1); SODIUM SERUM 131 mmol/L (136-145); UREA NITROGEN, BLOOD 11 mg/dL (7-18)
[2021-04-17 04:58] LABS: ALANINE AMINOTRANSFERASE 60 U/L (12-78); ALBUMIN 2.8 g/dL (3.4-5.0); ALKALINE PHOSPHATASE 115 U/L (46-116); ASPARTATE AMINOTRANSFERASE 15 U/L (15-37); BILIRUBIN,TOTAL 0.8 mg/dL (0.2-1.0); TOTAL PROTEIN, SERUM 6.8 g/dL (6.4-8.2)
[2021-04-17] MEDS: BLOOD SUGAR DIAGNOSTIC 1 EACH STRIP IN SCH ×4 (06:00→23:17)
[2021-04-17] MEDS: VANCOMYCIN 1 GM in IV D5W 250ml IV SCH ×2 (06:56→17:49)
[2021-04-17 08:00] VITALS: BP 135/98
[2021-04-17] MEDS: POTASSIUM CHLORIDE 20 MEQ POWDER PACKET NG SCH (08:55)
[2021-04-17] MEDS: DOCUSATE SODIUM LIQ 100 MG/10 ML UDC GT SCH ×2 (08:55→17:47)
[2021-04-17] MEDS: CHLORHEXIDINE GLUCONATE 15 ML UDC MM SCH ×2 (08:55→21:35)
[2021-04-17] MEDS: ASCORBIC ACID 500 MG TABLET GT SCH (08:55)
[2021-04-17] MEDS: HYDROCORTISONE SOD SUCCINATE 100 MG/2 ML VIAL IV SCH (08:55)
[2021-04-17] MEDS: LEVOTHYROXINE SODIUM 75 MCG TABLET GT SCH (08:56)
[2021-04-17] MEDS: PANTOPRAZOLE 40 MG TABLET.DR PO SCH ×2 (08:56→17:47)
[2021-04-17] MEDS: FAMOTIDINE (20 MG) 20 MG TABLET GT SCH ×2 (08:56→17:48)
[2021-04-17] MEDS: METOPROLOL TARTRATE 25 MG TABLET GT SCH ×2 (08:57→17:48)
[2021-04-17] MEDS: AMIODARONE HCL 200 MG TABLET PO SCH ×3 (08:57→17:48)
[2021-04-17 10:10] LABS: BAND % (MANUAL) 3 % (0.0-5.0); EOSINOPHILS % (MANUAL) 3 % (0-4); LYMPHOCYTES % (MANUAL) 15 % (16-48); METAMYELOCYTES % 1 % (0-0); MONOCYTES % (MANUAL) 4 % (0-11.0); NEUTROPHILS % (MANUAL) 74 (42-76)
[2021-04-17 12:00] VITALS: BP 112/64
[2021-04-17] MEDS: CHOLECALCIFEROL 1,000 UNIT TABLET (VIT D3) GT SCH (15:01)
[2021-04-17] MEDS: Z GUARD REMEDY 4 OZ OINT TP SCH ×2 (15:02→21:35)
[2021-04-17] MEDS: PROSOURCE / PROSTAT (PYXIS) 30 ML UDC GT SCH (15:04)
[2021-04-17 16:00] VITALS: BP 127/66
[2021-04-17] MEDS: INSULIN REGULAR, HUMAN 100 UNIT/ML 3 ML VIAL SQ PRN (18:51)
[2021-04-17 21:14] VITALS: BP 137/75
[2021-04-17] MEDS: SENNOSIDES 8.6 MG TABLET GT SCH (21:35)
[2021-04-17] MEDS: JEVITY 1.2 CAL 1,000 ML BOTTLE GT SCH (21:45)
[2021-04-18 00:32] VITALS: BP 146/84
[2021-04-18] MEDS: IPRATROPIUM NEB FS 0.5 MG/2.5 ML AMPUL.NEB IH SCH ×4 (01:00→20:20)
[2021-04-18 04:37] VITALS: BP 149/88
[2021-04-18] MEDS: BLOOD SUGAR DIAGNOSTIC 1 EACH STRIP IN SCH ×4 (05:13→23:44)
[2021-04-18] MEDS: VANCOMYCIN 1 GM in IV D5W 250ml IV SCH ×2 (05:13→16:14)
[2021-04-18] MEDS: INSULIN REGULAR, HUMAN 100 UNIT/ML 3 ML VIAL SQ PRN ×3 (05:21→23:50)
[2021-04-18 06:54] LABS: BASOPHILS % (AUTO) 0.1 % (0.0-2.0); HEMATOCRIT 29 % (33-45); HEMOGLOBIN 9.4 g/dL (11.5-14.8); LYMPHOCYTES # (AUTO) 0.8 K/uL (0.8-4.8); LYMPHOCYTES % (AUTO) 6.1 % (20.0-44.0); MEAN CORPUSCULAR HGB CONC 32 g/dl (31.0-36.0); MEAN CORPUSCULAR VOLUME 91 fL (82-100); MONOCYTES # (AUTO) 0.4 K/uL (0.1-1.30); MONOCYTES % (AUTO) 3.1 % (2.0-12.0); NEUTROPHILS # (AUTO) 12.1 K/uL (1.8-8.9); NEUTROPHILS % (AUTO) 88.7 % (43.0-81.0); PLATELET COUNT (AUTO) 363 K/uL (150-450); RED BLOOD CELL COUNT(AUTO) 3.23 MIL/uL (4.0-5.2); WHITE BLOOD COUNT (AUTO) 13.7 K/uL (4.3-11.0)
[2021-04-18 07:30] LABS: ALBUMIN 2.6 g/dL (3.4-5.0); BILIRUBIN,TOTAL 0.8 mg/dL (0.2-1.0); CALCIUM, SERUM 8.4 mg/dL (8.5-10.1); CREATININE 0.7 mg/dL (0.6-1.3); MAGNESIUM 2.2 mg/dL (1.8-2.4); PHOSPHORUS 2.7 mg/dL (2.5-4.9); POTASSIUM 3.7 mmol/L (3.5-5.1); TOTAL PROTEIN, SERUM 6.3 g/dL (6.4-8.2)
[2021-04-18 08:15] VITALS: BP 136/66
[2021-04-18] MEDS: ASCORBIC ACID 500 MG TABLET GT SCH (09:05)
[2021-04-18] MEDS: CHOLECALCIFEROL 1,000 UNIT TABLET (VIT D3) GT SCH (09:05)
[2021-04-18] MEDS: PANTOPRAZOLE 40 MG TABLET.DR PO SCH ×2 (09:05→16:12)
[2021-04-18] MEDS: PROSOURCE / PROSTAT (PYXIS) 30 ML UDC GT SCH (09:05)
[2021-04-18] MEDS: DOCUSATE SODIUM LIQ 100 MG/10 ML UDC GT SCH ×2 (09:05→16:12)
[2021-04-18] MEDS: METOPROLOL TARTRATE 25 MG TABLET GT SCH ×2 (09:05→16:16)
[2021-04-18] MEDS: FAMOTIDINE (20 MG) 20 MG TABLET GT SCH ×2 (09:05→16:12)
[2021-04-18] MEDS: CHLORHEXIDINE GLUCONATE 15 ML UDC MM SCH ×2 (09:05→21:41)
[2021-04-18] MEDS: AMIODARONE HCL 200 MG TABLET PO SCH ×3 (09:06→16:16)
[2021-04-18] MEDS: Z GUARD REMEDY 4 OZ OINT TP SCH ×2 (09:06→21:39)
[2021-04-18] MEDS: HYDROCORTISONE SOD SUCCINATE 100 MG/2 ML VIAL IV SCH (09:06)
[2021-04-18] MEDS: LEVOTHYROXINE SODIUM 75 MCG TABLET GT SCH (09:07)
[2021-04-18 12:38] LABS: BAND % (MANUAL) 1 % (0.0-5.0); EOSINOPHILS % (MANUAL) 3 % (0-4); LYMPHOCYTES % (MANUAL) 4 % (16-48); MONOCYTES % (MANUAL) 2 % (0-11.0); NEUTROPHILS % (MANUAL) 90 (42-76)
[2021-04-18] MEDS: JEVITY 1.2 CAL 1,000 ML BOTTLE GT SCH (13:38)
[2021-04-18 16:00] VITALS: BP 130/64
[2021-04-18] MEDS: ACETAMINOPHEN 650 MG/20.3 ML UDC NG PRN (16:28)
[2021-04-18 20:00] VITALS: BP_SYST 106; BP_DIAS 56; BP_DIAS 66
[2021-04-18] MEDS: SENNOSIDES 8.6 MG TABLET GT SCH (21:39)
[2021-04-19] VITALS: BP 136/77
[2021-04-19] MEDS: IPRATROPIUM NEB FS 0.5 MG/2.5 ML AMPUL.NEB IH SCH ×4 (02:16→20:27)
[2021-04-19] MEDS: VANCOMYCIN 1 GM in IV D5W 250ml IV SCH ×2 (05:02→16:28)
[2021-04-19] MEDS: BLOOD SUGAR DIAGNOSTIC 1 EACH STRIP IN SCH ×3 (05:49→18:38)
[2021-04-19 07:09] LABS: BASOPHILS % (AUTO) 0.1 % (0.0-2.0); EOSINOPHILS % (AUTO) 0.7 % (0.0-6.0); HEMATOCRIT 26 % (33-45); HEMOGLOBIN 8.3 g/dL (11.5-14.8); LYMPHOCYTES # (AUTO) 0.7 K/uL (0.8-4.8); LYMPHOCYTES % (AUTO) 4.6 % (20.0-44.0); MEAN CORPUSCULAR HGB CONC 33 g/dl (31.0-36.0); MEAN CORPUSCULAR VOLUME 90 fL (82-100); MONOCYTES # (AUTO) 0.7 K/uL (0.1-1.30); MONOCYTES % (AUTO) 4.4 % (2.0-12.0); NEUTROPHILS % (AUTO) 90.2 % (43.0-81.0); PLATELET COUNT (AUTO) 286 K/uL (150-450); RED BLOOD CELL COUNT(AUTO) 2.83 MIL/uL (4.0-5.2); WHITE BLOOD COUNT (AUTO) 15.5 K/uL (4.3-11.0)
[2021-04-19 08:00] VITALS: BP 118/67
[2021-04-19 08:04] LABS: ALBUMIN 2.4 g/dL (3.4-5.0); BILIRUBIN,TOTAL 1.5 mg/dL (0.2-1.0); CALCIUM, SERUM 8.5 mg/dL (8.5-10.1); CREATININE 0.7 mg/dL (0.6-1.3); MAGNESIUM 2.3 mg/dL (1.8-2.4); PHOSPHORUS 2.7 mg/dL (2.5-4.9); POTASSIUM 3.6 mmol/L (3.5-5.1); TOTAL PROTEIN, SERUM 6.2 g/dL (6.4-8.2)
[2021-04-19] MEDS: LEVOTHYROXINE SODIUM 75 MCG TABLET GT SCH (09:33)
[2021-04-19] MEDS: DOCUSATE SODIUM LIQ 100 MG/10 ML UDC GT SCH ×2 (09:34→16:28)
[2021-04-19] MEDS: Z GUARD REMEDY 4 OZ OINT TP SCH ×2 (09:34→20:13)
[2021-04-19] MEDS: CHLORHEXIDINE GLUCONATE 15 ML UDC MM SCH ×2 (09:34→20:13)
[2021-04-19] MEDS: PANTOPRAZOLE 40 MG TABLET.DR PO SCH ×2 (09:35→16:28)
[2021-04-19] MEDS: ASCORBIC ACID 500 MG TABLET GT SCH (09:35)
[2021-04-19] MEDS: FAMOTIDINE (20 MG) 20 MG TABLET GT SCH ×2 (09:35→16:28)
[2021-04-19] MEDS: AMIODARONE HCL 200 MG TABLET PO SCH ×3 (09:35→17:00)
[2021-04-19] MEDS: HYDROCORTISONE SOD SUCCINATE 100 MG/2 ML VIAL IV SCH (09:35)
[2021-04-19] MEDS: CHOLECALCIFEROL 1,000 UNIT TABLET (VIT D3) GT SCH (09:35)
[2021-04-19] MEDS: METOPROLOL TARTRATE 25 MG TABLET GT SCH ×2 (09:36→16:45)
[2021-04-19] MEDS: PROSOURCE / PROSTAT (PYXIS) 30 ML UDC GT SCH (09:49)
[2021-04-19 12:00] VITALS: BP 120/70
[2021-04-19 16:00] VITALS: BP 97/62
[2021-04-19 20:00] VITALS: BP 160/70
[2021-04-19] MEDS: SENNOSIDES 8.6 MG TABLET GT SCH (21:25)
[2021-04-20] VITALS: BP_SYST 103; BP_SYST 116; BP_DIAS 46; BP_DIAS 66
[2021-04-20] MEDS: BLOOD SUGAR DIAGNOSTIC 1 EACH STRIP IN SCH ×4 (00:44→17:02)
[2021-04-20] MEDS: INSULIN REGULAR, HUMAN 100 UNIT/ML 3 ML VIAL SQ PRN ×4 (00:47→17:02)
[2021-04-20] MEDS: IPRATROPIUM NEB FS 0.5 MG/2.5 ML AMPUL.NEB IH SCH ×4 (01:02→20:16)
[2021-04-20 04:00] VITALS: BP 138/96
[2021-04-20] MEDS: VANCOMYCIN 1 GM in IV D5W 250ml IV SCH ×2 (05:21→17:58)
[2021-04-20] MEDS: JEVITY 1.2 CAL 1,000 ML BOTTLE GT SCH (05:51)
[2021-04-20 07:28] LABS: BASOPHILS % (AUTO) 0.1 % (0.0-2.0); EOSINOPHILS % (AUTO) 3.1 % (0.0-6.0); HEMATOCRIT 27 % (33-45); LYMPHOCYTES # (AUTO) 0.7 K/uL (0.8-4.8); MEAN CORPUSCULAR HGB CONC 33 g/dl (31.0-36.0); MEAN CORPUSCULAR VOLUME 90 fL (82-100); MONOCYTES # (AUTO) 0.7 K/uL (0.1-1.30); MONOCYTES % (AUTO) 7.3 % (2.0-12.0); NEUTROPHILS # (AUTO) 7.8 K/uL (1.8-8.9); NEUTROPHILS % (AUTO) 82.5 % (43.0-81.0); PLATELET COUNT (AUTO) 254 K/uL (150-450); RED BLOOD CELL COUNT(AUTO) 3.03 MIL/uL (4.0-5.2); WHITE BLOOD COUNT (AUTO) 9.5 K/uL (4.3-11.0)
[2021-04-20 07:45] LABS: ALBUMIN 2.5 g/dL (3.4-5.0); BILIRUBIN,TOTAL 0.8 mg/dL (0.2-1.0); CALCIUM, SERUM 8.3 mg/dL (8.5-10.1); CREATININE 0.7 mg/dL (0.6-1.3); MAGNESIUM 2.2 mg/dL (1.8-2.4); PHOSPHORUS 2.8 mg/dL (2.5-4.9); POTASSIUM 3.5 mmol/L (3.5-5.1); TOTAL PROTEIN, SERUM 6.5 g/dL (6.4-8.2)
[2021-04-20 08:00] VITALS: BP 137/71
[2021-04-20] MEDS: ASCORBIC ACID 500 MG TABLET GT SCH (09:50)
[2021-04-20] MEDS: FAMOTIDINE (20 MG) 20 MG TABLET GT SCH ×2 (09:50→17:01)
[2021-04-20] MEDS: CHOLECALCIFEROL 1,000 UNIT TABLET (VIT D3) GT SCH (09:50)
[2021-04-20] MEDS: CHLORHEXIDINE GLUCONATE 15 ML UDC MM SCH ×2 (09:50→21:51)
[2021-04-20] MEDS: PANTOPRAZOLE 40 MG TABLET.DR PO SCH ×2 (09:50→17:00)
[2021-04-20] MEDS: DOCUSATE SODIUM LIQ 100 MG/10 ML UDC GT SCH ×2 (09:50→17:00)
[2021-04-20] MEDS: PROSOURCE / PROSTAT (PYXIS) 30 ML UDC GT SCH (09:50)
[2021-04-20] MEDS: METOPROLOL TARTRATE 25 MG TABLET GT SCH ×2 (09:51→17:01)
[2021-04-20] MEDS: AMIODARONE HCL 200 MG TABLET PO SCH ×3 (09:52→17:02)
[2021-04-20] MEDS: HYDROCORTISONE SOD SUCCINATE 100 MG/2 ML VIAL IV SCH (09:52)
[2021-04-20] MEDS: LEVOTHYROXINE SODIUM 75 MCG TABLET GT SCH (09:54)
[2021-04-20] MEDS: Z GUARD REMEDY 4 OZ OINT TP SCH ×2 (09:55→21:51)
[2021-04-20 16:00] VITALS: BP 142/84
[2021-04-20 20:00] VITALS: BP 127/62
[2021-04-20] MEDS: SENNOSIDES 8.6 MG TABLET GT SCH (21:51)
[2021-04-21] VITALS: BP 123/58
[2021-04-21] MEDS: BLOOD SUGAR DIAGNOSTIC 1 EACH STRIP IN SCH ×5 (00:28→23:26)
[2021-04-21] MEDS: INSULIN REGULAR, HUMAN 100 UNIT/ML 3 ML VIAL SQ PRN ×2 (00:29→18:53)
[2021-04-21] MEDS: JEVITY 1.2 CAL 1,000 ML BOTTLE GT SCH ×2 (01:01→21:27)
[2021-04-21] MEDS: IPRATROPIUM NEB FS 0.5 MG/2.5 ML AMPUL.NEB IH SCH ×4 (02:20→19:51)
[2021-04-21 04:00] VITALS: BP 130/49
[2021-04-21] MEDS: VANCOMYCIN 1 GM in IV D5W 250ml IV SCH ×2 (05:36→17:49)
[2021-04-21 06:29] LABS: BASOPHILS % (AUTO) 0.6 % (0.0-2.0); EOSINOPHILS % (AUTO) 3.9 % (0.0-6.0); HEMATOCRIT 25 % (33-45); HEMOGLOBIN 8.2 g/dL (11.5-14.8); LYMPHOCYTES # (AUTO) 0.6 K/uL (0.8-4.8); LYMPHOCYTES % (AUTO) 11.2 % (20.0-44.0); MEAN CORPUSCULAR HGB CONC 33 g/dl (31.0-36.0); MEAN CORPUSCULAR VOLUME 90 fL (82-100); MONOCYTES # (AUTO) 0.7 K/uL (0.1-1.30); MONOCYTES % (AUTO) 12.7 % (2.0-12.0); NEUTROPHILS # (AUTO) 4.1 K/uL (1.8-8.9); NEUTROPHILS % (AUTO) 71.6 % (43.0-81.0); PLATELET COUNT (AUTO) 220 K/uL (150-450); RED BLOOD CELL COUNT(AUTO) 2.76 MIL/uL (4.0-5.2); WHITE BLOOD COUNT (AUTO) 5.7 K/uL (4.3-11.0)
[2021-04-21 07:17] LABS: ALBUMIN 2.3 g/dL (3.4-5.0); BILIRUBIN,TOTAL 0.7 mg/dL (0.2-1.0); CALCIUM, SERUM 8.2 mg/dL (8.5-10.1); CREATININE 0.7 mg/dL (0.6-1.3); PHOSPHORUS 2.8 mg/dL (2.5-4.9); POTASSIUM 3.7 mmol/L (3.5-5.1); TOTAL PROTEIN, SERUM 6.2 g/dL (6.4-8.2)
[2021-04-21 07:35] LABS: THYROID STIMULATING HORMONE 64.021 uIU/mL (0.358-3.74); URIC ACID 1.2 mg/dL (2.6-7.2)
[2021-04-21 08:00] VITALS: BP 128/62
[2021-04-21] MEDS: CHOLECALCIFEROL 1,000 UNIT TABLET (VIT D3) GT SCH (08:49)
[2021-04-21] MEDS: ASCORBIC ACID 500 MG TABLET GT SCH (08:49)
[2021-04-21] MEDS: FAMOTIDINE (20 MG) 20 MG TABLET GT SCH ×2 (08:49→17:47)
[2021-04-21] MEDS: PANTOPRAZOLE 40 MG TABLET.DR PO SCH ×2 (08:49→17:47)
[2021-04-21] MEDS: DOCUSATE SODIUM LIQ 100 MG/10 ML UDC GT SCH ×2 (08:50→17:47)
[2021-04-21] MEDS: AMIODARONE HCL 200 MG TABLET PO SCH ×3 (08:50→17:47)
[2021-04-21] MEDS: CHLORHEXIDINE GLUCONATE 15 ML UDC MM SCH ×2 (08:50→21:23)
[2021-04-21] MEDS: METOPROLOL TARTRATE 25 MG TABLET GT SCH ×2 (08:52→17:47)
[2021-04-21] MEDS: LEVOTHYROXINE SODIUM 75 MCG TABLET GT SCH (08:55)
[2021-04-21] MEDS: HYDROCORTISONE SOD SUCCINATE 100 MG/2 ML VIAL IV SCH (08:57)
[2021-04-21] MEDS: Z GUARD REMEDY 4 OZ OINT TP SCH ×2 (08:58→21:25)
[2021-04-21] MEDS: PROSOURCE / PROSTAT (PYXIS) 30 ML UDC GT SCH (09:01)
[2021-04-21] MEDS ORDERED: LEVO75TA GT (09:30)
[2021-04-21] MEDS ORDERED: VANC1VIA34 XX (09:30)
[2021-04-21 12:00] VITALS: BP 132/70
[2021-04-21 16:00] VITALS: BP 132/69
[2021-04-21] MEDS: ACETAMINOPHEN 650 MG/20.3 ML UDC NG PRN (18:03)
[2021-04-21] MEDS: LORAZEPAM INJ 2 MG/ML VIAL IV PRN (19:49)
[2021-04-21 20:00] VITALS: BP 127/61
[2021-04-21] MEDS: SENNOSIDES 8.6 MG TABLET GT SCH (21:24)
[2021-04-21] MEDS ORDERED: ALBUTEROL FS 2.5 MG/0.5 ML VIAL.NEB NEB PRN (21:30)
[2021-04-22] VITALS: BP 123/62
[2021-04-22] MEDS: ACETAMINOPHEN 650 MG/20.3 ML UDC NG PRN ×3 (00:18→20:43)
[2021-04-22] MEDS ORDERED: ALBUTEROL FS 2.5 MG/0.5 ML VIAL.NEB NEB SCH (02:00)
[2021-04-22] MEDS ORDERED: IPRATROPIUM NEB FS 0.5 MG/2.5 ML AMPUL.NEB NEB SCH (02:00)
[2021-04-22] MEDS: IPRATROPIUM NEB FS 0.5 MG/2.5 ML AMPUL.NEB NEB SCH ×7 (02:39→23:50)
[2021-04-22] MEDS: ALBUTEROL FS 2.5 MG/0.5 ML VIAL.NEB NEB SCH ×7 (02:39→23:50)
[2021-04-22 04:00] VITALS: BP 99/48
[2021-04-22] MEDS: LORAZEPAM INJ 2 MG/ML VIAL IV PRN ×2 (04:07→20:44)
[2021-04-22] MEDS: VANCOMYCIN 1 GM in IV D5W 250ml IV SCH ×2 (05:14→18:17)
[2021-04-22] MEDS: BLOOD SUGAR DIAGNOSTIC 1 EACH STRIP IN SCH ×3 (05:35→18:50)
[2021-04-22] MEDS: INSULIN REGULAR, HUMAN 100 UNIT/ML 3 ML VIAL SQ PRN ×2 (05:37→12:19)
[2021-04-22 07:49] LABS: ALBUMIN 2.1 g/dL (3.4-5.0); CALCIUM, SERUM 8.2 mg/dL (8.5-10.1); CREATININE 0.8 mg/dL (0.6-1.3); POTASSIUM 3.6 mmol/L (3.5-5.1); TOTAL PROTEIN, SERUM 5.6 g/dL (6.4-8.2)
[2021-04-22 08:17] LABS: BASOPHILS % (AUTO) 0.5 % (0.0-2.0); EOSINOPHILS % (AUTO) 0.8 % (0.0-6.0); HEMATOCRIT 23 % (33-45); HEMOGLOBIN 7.6 g/dL (11.5-14.8); LYMPHOCYTES # (AUTO) 0.8 K/uL (0.8-4.8); LYMPHOCYTES % (AUTO) 9.4 % (20.0-44.0); MEAN CORPUSCULAR HGB CONC 32 g/dl (31.0-36.0); MEAN CORPUSCULAR VOLUME 90 fL (82-100); MONOCYTES # (AUTO) 0.7 K/uL (0.1-1.30); MONOCYTES % (AUTO) 7.7 % (2.0-12.0); NEUTROPHILS # (AUTO) 7.2 K/uL (1.8-8.9); NEUTROPHILS % (AUTO) 81.6 % (43.0-81.0); PLATELET COUNT (AUTO) 223 K/uL (150-450); RED BLOOD CELL COUNT(AUTO) 2.58 MIL/uL (4.0-5.2); WHITE BLOOD COUNT (AUTO) 8.8 K/uL (4.3-11.0)
[2021-04-22] MEDS: METOPROLOL TARTRATE 25 MG TABLET GT SCH ×2 (09:00→18:17)
[2021-04-22] MEDS: AMIODARONE HCL 200 MG TABLET PO SCH ×4 (09:00→18:16)
[2021-04-22] MEDS: Z GUARD REMEDY 4 OZ OINT TP SCH ×2 (09:00→20:36)
[2021-04-22 09:13] VITALS: BP 115/62
[2021-04-22 09:53] LABS: ABG BASE EXCESS 3.2 mmol/L; ABG PH 7.546 (7.350-7.450); ABG PO2 79.8 mmHg (75.0-100.0); COHb 0.3 % (0.5-1.5); MetHb 0.2 % (0.0-1.5); O2Hb 95.5 % (94.0-97.0); PEEP,BG 5 cm H2O; SITE, ABG Left Radial; VT, ABG 400 mL
[2021-04-22] MEDS: DOCUSATE SODIUM LIQ 100 MG/10 ML UDC GT SCH ×2 (10:02→18:15)
[2021-04-22] MEDS: LEVOTHYROXINE SODIUM 75 MCG TABLET GT SCH (10:02)
[2021-04-22] MEDS: CHOLECALCIFEROL 1,000 UNIT TABLET (VIT D3) GT SCH (10:03)
[2021-04-22] MEDS: CHLORHEXIDINE GLUCONATE 15 ML UDC MM SCH ×2 (10:03→20:35)
[2021-04-22] MEDS: PANTOPRAZOLE 40 MG TABLET.DR PO SCH ×2 (10:03→18:15)
[2021-04-22] MEDS: ASCORBIC ACID 500 MG TABLET GT SCH (10:03)
[2021-04-22] MEDS: FAMOTIDINE (20 MG) 20 MG TABLET GT SCH ×2 (10:03→18:15)
[2021-04-22] MEDS: HYDROCORTISONE SOD SUCCINATE 100 MG/2 ML VIAL IV SCH (10:03)
[2021-04-22] MEDS: PROSOURCE / PROSTAT (PYXIS) 30 ML UDC GT SCH (10:04)
[2021-04-22 12:03] VITALS: BP 106/56
[2021-04-22 13:50] LABS: BAND % (MANUAL) 11 % (0.0-5.0); LYMPHOCYTES % (MANUAL) 10 % (16-48); MONOCYTES % (MANUAL) 9 % (0-11.0); NEUTROPHILS % (MANUAL) 70 (42-76)
[2021-04-22 16:12] VITALS: BP 124/64
[2021-04-22] MEDS: JEVITY 1.2 CAL 1,000 ML BOTTLE GT SCH (18:17)
[2021-04-22 20:40] VITALS: BP 122/61
[2021-04-22] MEDS: SENNOSIDES 8.6 MG TABLET GT SCH (21:33)
[2021-04-23] MEDS: BLOOD SUGAR DIAGNOSTIC 1 EACH STRIP IN SCH ×4 (00:24→17:21)
[2021-04-23 00:56] VITALS: BP 102/58
[2021-04-23] MEDS: ALBUTEROL FS 2.5 MG/0.5 ML VIAL.NEB NEB SCH ×5 (02:59→20:05)
[2021-04-23] MEDS: IPRATROPIUM NEB FS 0.5 MG/2.5 ML AMPUL.NEB NEB SCH ×5 (02:59→20:04)
[2021-04-23] MEDS: LORAZEPAM INJ 2 MG/ML VIAL IV PRN (03:25)
[2021-04-23] MEDS: VANCOMYCIN 1 GM in IV D5W 250ml IV SCH ×2 (05:04→17:15)
[2021-04-23] MEDS: INSULIN REGULAR, HUMAN 100 UNIT/ML 3 ML VIAL SQ PRN ×3 (06:33→17:22)
[2021-04-23] MEDS: JEVITY 1.2 CAL 1,000 ML BOTTLE GT SCH (06:42)
[2021-04-23 07:13] LABS: CALCIUM, SERUM 8.2 mg/dL (8.5-10.1); CREATININE 0.6 mg/dL (0.6-1.3); MAGNESIUM 2.2 mg/dL (1.8-2.4); PHOSPHORUS 3.4 mg/dL (2.5-4.9); POTASSIUM 3.9 mmol/L (3.5-5.1)
[2021-04-23 07:19] LABS: BASOPHILS % (AUTO) 0.8 % (0.0-2.0); EOSINOPHILS % (AUTO) 2.7 % (0.0-6.0); HEMATOCRIT 24 % (33-45); HEMOGLOBIN 7.7 g/dL (11.5-14.8); LYMPHOCYTES # (AUTO) 0.6 K/uL (0.8-4.8); LYMPHOCYTES % (AUTO) 11.5 % (20.0-44.0); MEAN CORPUSCULAR HGB CONC 32 g/dl (31.0-36.0); MEAN CORPUSCULAR VOLUME 90 fL (82-100); MONOCYTES # (AUTO) 0.3 K/uL (0.1-1.30); MONOCYTES % (AUTO) 6.2 % (2.0-12.0); NEUTROPHILS # (AUTO) 3.8 K/uL (1.8-8.9); NEUTROPHILS % (AUTO) 78.8 % (43.0-81.0); PLATELET COUNT (AUTO) 221 K/uL (150-450); RED BLOOD CELL COUNT(AUTO) 2.67 MIL/uL (4.0-5.2); WHITE BLOOD COUNT (AUTO) 4.8 K/uL (4.3-11.0)
[2021-04-23 08:00] VITALS: BP 106/57
[2021-04-23] MEDS: LEVOTHYROXINE SODIUM 75 MCG TABLET GT SCH (08:30)
[2021-04-23] MEDS: PROSOURCE / PROSTAT (PYXIS) 30 ML UDC GT SCH (08:44)
[2021-04-23] MEDS: CHOLECALCIFEROL 1,000 UNIT TABLET (VIT D3) GT SCH (08:44)
[2021-04-23] MEDS: ASCORBIC ACID 500 MG TABLET GT SCH (08:44)
[2021-04-23] MEDS: DOCUSATE SODIUM LIQ 100 MG/10 ML UDC GT SCH ×2 (08:44→16:28)
[2021-04-23] MEDS: AMIODARONE HCL 200 MG TABLET PO SCH ×3 (08:44→16:28)
[2021-04-23] MEDS: PANTOPRAZOLE 40 MG TABLET.DR PO SCH ×2 (08:44→16:28)
[2021-04-23] MEDS: CHLORHEXIDINE GLUCONATE 15 ML UDC MM SCH (08:44)
[2021-04-23] MEDS: METOPROLOL TARTRATE 25 MG TABLET GT SCH ×2 (08:45→16:28)
[2021-04-23] MEDS: FAMOTIDINE (20 MG) 20 MG TABLET GT SCH ×2 (08:45→16:28)
[2021-04-23] MEDS: HYDROCORTISONE SOD SUCCINATE 100 MG/2 ML VIAL IV SCH (08:45)
[2021-04-23] MEDS: Z GUARD REMEDY 4 OZ OINT TP SCH (08:46)
[2021-04-23 12:00] VITALS: BP 100/68
[2021-04-23] MEDS: ACETAMINOPHEN 650 MG/20.3 ML UDC NG PRN (12:08)
[2021-04-23] MEDS ORDERED: CEFEPIME 2 GM in IV D5W 100 ML IV SCH (16:00)
[2021-04-23 16:33] VITALS: BP 106/62
== END 2021-04-23 20:17 | DRG 870 ==
LOC: ER 02:26 → EDSEX 07:47 → TRANSITION 07:47 → ICU 11:28 → TELE 04-11 19:09
PROVIDERS: ADMIT Nurse Practitioner Acute Care; ATTEND Registered Nurse
PROC: 5A1955Z Respiratory Ventilation, Greater than 96 Consecutive Hours (ICD-10-PCS; principal; 2021-04-10)
PROC: 02HV33Z Insertion of Infusion Device into Superior Vena Cava, Percutaneous Approach (ICD-10-PCS; 2021-04-23)
PROC: B548ZZA Ultrasonography of Superior Vena Cava, Guidance (ICD-10-PCS; 2021-04-23)
DX: A41.02 Sepsis due to Methicillin resistant Staphylococcus aureus (principal); R53.2 Functional quadriplegia; G93.41 Metabolic encephalopathy; J96.20 Acute and chronic respiratory failure, unspecified whether with hypoxia or hypercapnia; R65.21 Severe sepsis with septic shock; J69.0 Pneumonitis due to inhalation of food and vomit; I50.23 Acute on chronic systolic (congestive) heart failure; I33.0 Acute and subacute infective endocarditis; J95.851 Ventilator associated pneumonia; D68.59 Other primary thrombophilia; E44.0 Moderate protein-calorie malnutrition; N39.0 Urinary tract infection, site not specified; Z99.11 Dependence on respirator [ventilator] status; E27.40 Unspecified adrenocortical insufficiency; N17.9 Acute kidney failure, unspecified; E87.1 Hypo-osmolality and hyponatremia; E87.2 Acidosis; I48.91 Unspecified atrial fibrillation; Y84.8 Other medical procedures as the cause of abnormal reaction of the patient, or of later complication, without mention of misadventure at the time of the procedure; Y92.009 Unspecified place in unspecified non-institutional (private) residence as the place of occurrence of the external cause; Z20.822 Contact with and (suspected) exposure to COVID-19; E11.22 Type 2 diabetes mellitus with diabetic chronic kidney disease; Z85.828 Personal history of other malignant neoplasm of skin; Z93.1 Gastrostomy status; Z93.0 Tracheostomy status; R13.10 Dysphagia, unspecified; E03.9 Hypothyroidism, unspecified; D64.9 Anemia, unspecified; N18.9 Chronic kidney disease, unspecified; E87.6 Hypokalemia; L85.3 Xerosis cutis; Z79.4 Long term (current) use of insulin; Z79.890 Hormone replacement therapy; Z79.899 Other long term (current) drug therapy; T14.8XXA Other injury of unspecified body region, initial encounter; X58.XXXA Exposure to other specified factors, initial encounter; Y92.9 Unspecified place or not applicable; L89.626 Pressure-induced deep tissue damage of left heel; L89.616 Pressure-induced deep tissue damage of right heel
CPT/HCPCS: 31720; 36415; 36600; 71045-TC; 71260-TC; 80048-TC; 80053-TC; 80061-TC; 80076-TC; 80202-TC; 81001; 82533; 82728-TC; 82803-TC; 82962-TC; 83540-TC; 83605-TC; 83735-TC; 83880; 84100-TC; 84132-TC; 84439-TC; 84443-TC; 84484-TC; 84550-TC; 85025-TC; 85027-TC; 85730-TC; 86850-TC; 87040-TC; 87070-TC; 87086-TC; 87806; 93307-TC; 94002-TC; 94003-TC; 94760-TC; 94762-TC; 94799-TC; 99082-TC; A4216; A4623; C9113; G0378; J0282; J0692; J1160; J1720; J1815; J2060; J2250; J2916; J3010; J3370; J3490; J7030; J7050; J7060; Q9967; U0003